=== PATIENT | male | born 1960 | race Caucasian/White ===

== ENCOUNTER 2016-11-29 10:40 | Inpatient (IN) | payer OTHER ==
[~2016-11-29] VITALS: Ht 172.7 cm; Wt 88.5 kg
[2016-11-29 11:09] LABS: BASOPHIL % 0.4 % (0-2); PLATELET COUNT 384 x10^3mcL (130-400); RED CELL DISTRIBUTION WIDTH 13.6 % (11.5-14.5)
[2016-11-29 11:24] LABS: CALCIUM 8.7 mg/dL (8.5-10.1); CHLORIDE SERUM 105 mmol/L (98-107); CREATININE SERUM 0.8 mg/dL (0.7-1.3); GFR1 > 60 mL/min; GLUCOSE SERUM 126 mg/dL (74-106); POTASSIUM SERUM 3.2 mmol/L (3.5-5.1); SODIUM SERUM 141 mmol/L (136-145)
[2016-11-29 11:29] LABS: ALBUMIN 3.6 g/dL (3.4-5.0); ALKALINE PHOSPHATASE 85 U/L (46-116); ALT/SGPT 28 U/L (16-63); AST/SGOT 23 U/L (15-37); BILIRUBIN TOTAL 0.6 mg/dL (0.20-1.00); TOTAL PROTEIN, SERUM 7.2 g/dL (6.4-8.2)
[2016-11-29] MEDS ORDERED: APAP/OXYCODONE1 TA4 PO (12:19)
[2016-11-29] MEDS ORDERED: NEXIUM20 MG PO (12:19)
[2016-11-29] MEDS ORDERED: OXYC PO (12:19)
[2016-11-29 12:35] LABS: AMPHETAMINE QUAL UR NONE DETECTED (NEG <=1000)
[2016-11-29 12:54] VITALS: BP 149/84
[2016-11-29 13:03] LABS: T3 TOTAL 1.25 ng/mL
[2016-11-29 13:27] LABS: FREE T4 1.09 ng/dL (0.76-1.46); FREE THYROXINE INDEX 2.3 ug/dL (1.4-4.5); T4(THYROXINE) 6.7 ug/dL (4.7-13.3)
[2016-11-29 13:45] LABS: microscopic required? NO
[2016-11-29 14:27] LABS: urine erythrocyte NEGATIVE (NEGATIVE)
[2016-11-29 14:33] LABS: CHOLESTEROL/HDL RATIO 3.3; PHOSPHOROUS 2.4 mg/dL (2.5-4.9)
[2016-11-29 19:40] VITALS: BP 124/86
[2016-11-30 05:25] VITALS: BP 147/86
[2016-11-30 09:34] VITALS: BP 149/81
[2016-11-30 13:02] LABS: CALCIUM 8.3 mg/dL (8.5-10.1); CARBON DIOXIDE 28.1 mmol/L (21-32); CHLORIDE SERUM 111 mmol/L (98-107); CREATININE SERUM 0.8 mg/dL (0.7-1.3); GFR1 > 60 mL/min; GLUCOSE SERUM 107 mg/dL (74-106); MAGNESIUM 1.9 mg/dL (1.8-2.4); PHOSPHOROUS 2.6 mg/dL (2.5-4.9); POTASSIUM SERUM 3.8 mmol/L (3.5-5.1); SODIUM SERUM 144 mmol/L (136-145)
[2016-11-30 13:09] LABS: BASOPHIL % 0.6 % (0-2); PLATELET COUNT 300 x10^3mcL (130-400); RED CELL DISTRIBUTION WIDTH 13.6 % (11.5-14.5)
[2016-11-30 13:21] VITALS: BP 129/87
[2016-11-30 17:16] VITALS: BP 146/77
[2016-11-30 20:47] VITALS: BP 140/75
[2016-12-01 05:34] VITALS: BP 147/94
[2016-12-01 08:43] LABS: BASOPHIL % 0.5 % (0-2); PLATELET COUNT 290 x10^3mcL (130-400); RED CELL DISTRIBUTION WIDTH 13.7 % (11.5-14.5)
[2016-12-01 09:08] LABS: CALCIUM 7.9 mg/dL (8.5-10.1); CARBON DIOXIDE 29.7 mmol/L (21-32); CHLORIDE SERUM 108 mmol/L (98-107); CREATININE SERUM 0.8 mg/dL (0.7-1.3); GFR1 > 60 mL/min; GLUCOSE SERUM 100 mg/dL (74-106); POTASSIUM SERUM 3.7 mmol/L (3.5-5.1); SODIUM SERUM 144 mmol/L (136-145)
[2016-12-01 10:10] VITALS: BP 130/72
[2016-12-01] MEDS ORDERED: BACO TOP (10:44)
[2016-12-01] MEDS ORDERED: HIBICLENS118 ML TOP (10:45)
[2016-12-01 11:48] VITALS: BP 130/72
[2016-12-01 13:04] VITALS: BP 139/77
== END 2016-12-01 13:45 | disposition home or self-care (01) | DRG 312 ==
LOC: ED 10:40 → DU 12:07 → MU 12-01 11:35
PROVIDERS: Emergency Medicine; ADMIT Family Medicine
DX: R55 Syncope and collapse (principal); E87.6 Hypokalemia; E83.39 Other disorders of phosphorus metabolism; G89.21 Chronic pain due to trauma; M25.561 Pain in right knee; D64.9 Anemia, unspecified; F17.210 Nicotine dependence, cigarettes, uncomplicated; Z22.322 Carrier or suspected carrier of Methicillin resistant Staphylococcus aureus; Z68.29 Body mass index [BMI] 29.0-29.9, adult; Z79.891 Long term (current) use of opiate analgesic
CPT/HCPCS: 83880; 84439; 97530-GP; C9113; G0480; J1170; J1885; J2405; J2550; J2765; J3490; J7030; Q0092

== ENCOUNTER 2016-12-03 14:08 | Emergency (ER) | payer OTHER ==
[~2016-12-03 14:08] MED LIST: APAP/OXYCODONE1 TA4 PO; BACO TOP; HIBICLENS118 ML TOP; NEXIUM20 MG PO; OXYC PO
[2016-12-03 17:06] LABS: BASOPHIL % 0.3 % (0-2); CALCIUM 8.8 mg/dL (8.5-10.1); CARBON DIOXIDE 27.2 mmol/L (21-32); CHLORIDE SERUM 104 mmol/L (98-107); CREATININE SERUM 0.9 mg/dL (0.7-1.3); GFR1 > 60 mL/min; GLUCOSE SERUM 130 mg/dL (74-106); POTASSIUM SERUM 3.6 mmol/L (3.5-5.1); RED CELL DISTRIBUTION WIDTH 13.7 % (11.5-14.5); SODIUM SERUM 142 mmol/L (136-145)
[2016-12-03 17:10] LABS: PLATELET COUNT 410 x10^3mcL (130-400)
[2016-12-03 17:11] LABS: ALBUMIN 3.6 g/dL (3.4-5.0); ALKALINE PHOSPHATASE 80 U/L (46-116); ALT/SGPT 17 U/L (16-63); AST/SGOT 13 U/L (15-37); BILIRUBIN TOTAL 0.58 mg/dL (0.20-1.00); LIPASE 212 IU/L (73-393); TOTAL PROTEIN, SERUM 7.2 g/dL (6.4-8.2)
[2016-12-03 19:50] VITALS: BP 157/110
== END 2016-12-03 19:50 | disposition home or self-care (01) ==
LOC: ED 14:08
PROVIDERS: Emergency Medicine
DX: K29.00 Acute gastritis without bleeding (principal); R03.0 Elevated blood-pressure reading, without diagnosis of hypertension; F17.200 Nicotine dependence, unspecified, uncomplicated; G89.29 Other chronic pain; M25.562 Pain in left knee; Z87.11 Personal history of peptic ulcer disease; Z71.6 Tobacco abuse counseling
CPT/HCPCS: C9113; J2765; J3010